=== PATIENT | female | born 1960 ===

== ENCOUNTER → 2018-01-03 | Emergency (ER) | payer OTHER ==
[~2018-01-03] VITALS: Ht 157.5 cm; Wt 68.5 kg
== END | disposition left against medical advice (07) ==
LOC: ER 10:00
DX: J40 Bronchitis, not specified as acute or chronic (principal)

== ENCOUNTER 2019-01-22 09:42 | Emergency (ER) | payer OTHER ==
[~2019-01-22] VITALS: Ht 157.5 cm; Wt 69.4 kg
== END 2019-01-22 12:56 | disposition home or self-care (01) ==
LOC: ER 09:42
DX: S20.212A Contusion of left front wall of thorax, initial encounter (principal); S20.211A Contusion of right front wall of thorax, initial encounter; R07.89 Other chest pain; W01.0XXA Fall on same level from slipping, tripping and stumbling without subsequent striking against object, initial encounter; Y93.E8 Activity, other personal hygiene; Y92.012 Bathroom of single-family (private) house as the place of occurrence of the external cause; Y99.8 Other external cause status

== ENCOUNTER 2019-01-24 07:34 | Outpatient (CLI) | payer OTHER | END 2019-01-24 07:39 | disposition home or self-care (01) | LOC: TOM 07:34 | DX: R10.811 Right upper quadrant abdominal tenderness (principal) ==